=== PATIENT | female | born 1990 | race Asian ===

== ENCOUNTER 2016-12-09 08:13 | Inpatient (IN) | payer OTHER ==
[~2016-12-09] VITALS: Ht 170.2 cm; Wt 65.0 kg
[2016-12-09 08:14] VITALS: Ht 170.2 cm; Wt 65.0 kg
[2016-12-09] MEDS ORDERED: ONDANSETRON INJ 2 MG/ML 2 ML VIAL IV STA (08:28)
[2016-12-09] MEDS ORDERED: MoRPHine SULFATE 4 MG/ML 1 ML CARP\\VIAL IV STA ×2 (08:28→10:39)
[2016-12-09] MEDS ORDERED: OPTIRAY 320 IV PRN (08:45)
[2016-12-09 08:51] LABS: BASO % 0.5 %; BASO ABS # 0.03 K/uL (0-0.2); COMPLETE YES; EOS % 1.7 %; HEMATOCRIT 38.3 % (37-47); IG% 0.2 %; LYMPH % 28.9 %; LYMPH ABS # 1.67 K/uL (1.2-3.4); MEAN CELL VOLUME 87.2 fL (80-100); MEAN CORPUSCULAR HEMOGLOBIN 30.5 pg (25-34); MEAN PLATELET VOLUME 8.9 fL (7.4-10.4); MONO % 6.2 %; NEUT % 62.5 %; PLATELET COUNT 236 K/uL (130-400); RED BLOOD COUNT 4.39 M/uL (4.2-5.4); WHITE BLOOD COUNT 5.78 K/uL (4.8-10.8)
[2016-12-09 08:54] LABS: MANUAL MICROSCOPIC REQUIRED? NO; REVIEW REQ? NO; URINE APPEARANCE CLEAR (CLEAR); URINE BILIRUBIN NEG (NEG); URINE COLOR YELLOW; URINE NITRITE NEG (NEG); URINE PH 5.5 (4.5-7.5); URINE SPECIFIC GRAVITY 1.021 (1.000-1.030); UROBILINOGEN NEG (NEG); ZZUR CULT IF INDIC CLEAN CATCH NO
[2016-12-09 09:02] LABS: PARTIAL THROMBOPLASTIN RATIO 1.1; PROTHROMBIN TIME (PATIENT) 11.1 SECONDS (9.0-12.0)
[2016-12-09 09:07] LABS: ALT/SGPT 46 U/L (12-78); BLOOD UREA NITROGEN 9 mg/dl (7-18); CALCIUM 9.4 mg/dl (8.5-10.1); CARBON DIOXIDE 25 mmol/L (21-32); CHLORIDE 107 mmol/L (98-107); CREATININE 0.81 mg/dl (0.60-1.20); GLUCOSE 102 mg/dl (70-99); MAGNESIUM 1.9 mg/dl (1.8-2.4); POTASSIUM 3.7 mmol/L (3.5-5.1); SODIUM 139 mmol/L (136-145)
[2016-12-09 09:12] LABS: ALKALINE PHOSPHATASE 117 U/L (45-117); AST/SGOT 35 U/L (15-37)
[2016-12-09] MEDS ORDERED: PROMETHAZINE HCL INJ 12.5 MG in SODIUM CHLORIDE 0.9% 50ML 50 ML IV STA (10:52)
--- NOTE | 2016-12-09 11:45 | DIAGNOSTIC IMAGING REPORT ---
ABD/PELVIS IV AND ORAL CONT CLINICAL HISTORY: 26 years-old Female presenting with lower abdominal pain, severe pain. TECHNIQUE: Multidetector CT of the abdomen and pelvis was performed after the administration of oral and intravenous contrast. IV contrast: 93 mL of Optiray 320. A dose lowering technique was used consistent with the principles of ALARA (as low as reasonably achievable). COMPARISON: None. CT DOSE (mGy.cm): The estimated cumulative dose is 352.84 mGy.cm. FINDINGS: Transportation Director topogram: Unremarkable. Lung bases: Minimal dependent changes likely atelectasis. Normal heart size. No pericardial or pleural effusion. Liver: Normal morphology. No liver lesion. Patent hepatic vasculature. Biliary: No intrahepatic or extrahepatic biliary ductal dilatation. Normal gallbladder. Pancreas: Normal. Spleen: Normal. Adrenal glands: Normal. Kidneys and ureters: Normal. No hydronephrosis. Bladder: Normal. Pelvic organs: Normal uterus. Significant enlargement and heterogeneity with central hypodensity of the left ovary. A clear twisting of the vascular pedicle is not appreciated. The right ovary is also prominent although not significantly enlarged. Bowel: Moderate stool burden in the right and proximal transverse colon. Feces in the distal small bowel suggest delayed transit. No bowel obstruction. Grossly normal appendix. Peritoneal cavity: Small amount of perihepatic and pelvic ascites. Lymph nodes: No enlarged lymph nodes in the abdomen or pelvis. Vasculature: Aorta and IVC patent and normal in caliber. Abdominal wall: Normal. Musculoskeletal: Normal. IMPRESSION: 1. Findings highly suspicious for left ovarian torsion. Differential considerations include tubo-ovarian abscess given the degree of pelvic and perihepatic free fluid. Urgent gynecologic consultation advised. 2. These findings were discussed with REED Stokes by Dr. Bolton at 11:45 AM on 12/09/2016. Electronically signed by: Kendall Bolton M.D. 12/09/2016 11:44 AM Dictated Date/Time: 12/09/2016 11:34 AM
--- NOTE | 2016-12-09 13:06 | DIAGNOSTIC IMAGING REPORT ---
PELVIC COMPLETE NON OB CLINICAL HISTORY: 26 years-old Female presenting with Left ovarian abscess/torsion. TECHNIQUE: Real-time grayscale and color Doppler ultrasound imaging of the pelvis was performed using a transabdominal probe. COMPARISON: CT performed earlier the same day. FINDINGS: Uterus: Normal. Anteverted. The uterus measures 7.7 x 3.9 x 3.8 cm. Endometrial stripe measures 9 mm in thickness. Endometrium normal-appearing. Cervix normal. Right adnexa: Not visualized. Left adnexa: Left ovary enlarged and heterogeneous appearance. Left ovary measures 5.3 x 4.8 x 2.6 cm. Absence of normal color Doppler flow. Adjacent free fluid. Other: Small amount of free fluid in the pelvis. IMPRESSION: Findings remain most suspicious for left ovarian torsion. Nonvisualization of the right ovary. Examination limited by absence of transvaginal technique due to patient intolerance. Urgent gynecologic consultation advised. Electronically signed by: Kendall Bolton M.D. 12/09/2016 1:05 PM Dictated Date/Time: 12/09/2016 1:02 PM
[2016-12-09 13:21] LABS: PREG INTERNAL NEGATIVE QC NEG CLEAR BACKGROUND; PREG INTERNAL POSITIVE QC POS CONTROL LINE
[2016-12-09] MEDS ORDERED: BUPIVACAINE 0.5 % 5 MG/1 ML MPF 30ML VIAL ONE (13:39)
[2016-12-09] MEDS ORDERED: DEXAMETHASONE SOD INJ 4 MG/ML VIAL ONE (13:42)
[2016-12-09] MEDS ORDERED: MIDAZOLAM HCL 1 MG/ML 2ML VIAL ONE (13:42)
[2016-12-09] MEDS ORDERED: ONDANSETRON INJ 2 MG/ML 2 ML VIAL ONE (13:42)
[2016-12-09] MEDS ORDERED: NEOSTIGMINE METHYLSULFATE 5 MG/5 ML SYR ONE (13:42)
[2016-12-09] MEDS ORDERED: FENTANYL CITRATE INJ 50 MCG/1 ML 2 ML VIAL ONE ×2 (13:42→15:11)
[2016-12-09] MEDS ORDERED: LIDOCAINE HCL 2% 2 ML VIAL (20MG/ML) ONE (13:42)
[2016-12-09] MEDS ORDERED: GLYCOPYRROLATE INJ 0.2 MG/ML VIAL ONE (13:42)
[2016-12-09] MEDS ORDERED: PROPOFOL IV EMULSION 10 MG/ML 20 ML VIAL IV ONE (13:42)
[2016-12-09] MEDS ORDERED: ROCURONIUM BROMIDE 10 MG/ML 5 ML VIAL IV ONE ×3 (13:44→16:55)
--- NOTE | 2016-12-09 13:45 | History & Physical Bridge Note ---
H&P Re-Evaluation Bridge Note: I have examined the patient, reviewed the History & Physical and in the interval since the performance of the History & Physical I have noted the following changes of clinical significance: No changes noted
--- NOTE | 2016-12-09 13:45 | History and Physical ---
History & Physical Date of Service Dec 09, 2016. History & Physical Date of Consultation: Dec 09, 2016. Attending Physician: Dr Jennings - attending, Isaak Diaz PA-C Reason for Consultation: ovarian torsion History of Present Illness Patient is a 26-year-old G0 who presented to the emergency department with severe right lower quadrant pain that started at 7 AM today. She has experienced some nausea and attempted to vomit to feel better however this did not alleviate pain. She has had nausea since arriving at the ER and has also vomited once however the pain preceded the nausea and vomiting. The pain is described as sharp and severe and comes in waves. Patient's gynecologic history is benign. She reports a last menstrual period of the middle of November, unsure of exact dates. She reports a Pap smear performed 1 year ago that was negative and reports no history of abnormal Paps. She reports no history of sexually transmitted infections. 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 She is originally from [place] and has been living in [place] for 1 year. Past Medical/Surgical History Patient denies past medical history. Patient denies past surgical history. Patient denies family medical history. Social History Patient denies smoking. Social alcohol use. Denies drug use and denies additional herbal supplements. Smoking Status: Never Smoker Allergies Coded Allergies: No Known Allergies (Unverified , 12/09/16) Home Medications Patient reports she takes no medications at home. Current Inpatient Medications Current Inpatient Medications Medications (Trade) Dose Ordered Sig/Ivan Route Start Time Stop Time Status Last Admin Dose Admin Ioversol (Optiray 320) 100 ml UD PRN IV 12/09/16 08:45 12/13/16 08:44 Review of Systems Review of systems was conducted all systems reviewed negative except as described above in history of present illness. Physical Exam Date Time Temp Pulse Resp B/P (MAP) Pulse Ox O2 Delivery O2 Flow Rate FiO2 12/09/16 13:28 94 20 112/79 97 Room Air 12/09/16 12:46 78 12/09/16 12:34 78 16 105/68 97 Room Air 12/09/16 10:48 83 16 122/71 98 Room Air 12/09/16 09:58 71 18 105/72 99 Room Air 12/09/16 08:57 76 12/09/16 08:50 98 Room Air 12/09/16 08:14 37.4 90 18 119/74 99 Room Air General Appearance: WD/WN, + moderate distress Head: normocephalic, atraumatic ENT: hearing grossly normal Neck: supple Respiratory/Chest: no respiratory distress Cardiovascular: regular rate, rhythm Abdomen/GI: soft, + tenderness (bilateral lower quadrants.), + guarding Extremities/Musculoskelatal: normal inspection Neurologic/Psych: alert, normal mood/affect, oriented x 3 Skin: normal color, warm/dry Laboratory Results Last 24 Hours Test 12/09/16 08:28 12/09/16 08:37 White Blood Count 5.78 K/uL Red Blood Count 4.39 M/uL Hemoglobin 13.4 g/dL Hematocrit 38.3 % Mean Corpuscular Volume 87.2 fL Mean Corpuscular Hemoglobin 30.5 pg Mean Corpuscular Hemoglobin Concent 35.0 g/dl Platelet Count 236 K/uL Mean Platelet Volume 8.9 fL Neutrophils (%) (Auto) 62.5 % Lymphocytes (%) (Auto) 28.9 % Monocytes (%) (Auto) 6.2 % Eosinophils (%) (Auto) 1.7 % Basophils (%) (Auto) 0.5 % Neutrophils # (Auto) 3.61 K/uL Lymphocytes # (Auto) 1.67 K/uL Monocytes # (Auto) 0.36 K/uL Eosinophils # (Auto) 0.10 K/uL Basophils # (Auto) 0.03 K/uL RDW Standard Deviation 41.6 fL RDW Coefficient of Variation 12.9 % Immature Granulocyte % (Auto) 0.2 % Immature Granulocyte # (Auto) 0.01 K/uL Prothrombin Time 11.1 SECONDS Prothromb Time International Ratio 1.0 Activated Partial Thromboplast Time 28.6 SECONDS Partial Thromboplastin Ratio 1.1 Urine Color YELLOW Urine Appearance CLEAR Urine pH 5.5 Urine Specific [place] 1.021 Urine Protein NEG Urine Glucose (UA) NEG Urine Ketones NEG Urine Occult Blood NEG Urine Nitrite NEG Urine Bilirubin NEG Urine Urobilinogen NEG Urine Leukocyte Esterase NEG Sodium Level 139 mmol/L Potassium Level 3.7 mmol/L Chloride Level 107 mmol/L Carbon Dioxide Level 25 mmol/L Anion Gap 7.0 mmol/L Blood Urea Nitrogen 9 mg/dl Creatinine 0.81 mg/dl Est Creatinine Clear Calc Drug Dose 102.4 ml/min Estimated GFR () 116.2 Estimated GFR (Non- 100.2 BUN/Creatinine Ratio 11.0 Random Glucose 102 mg/dl Calcium Level 9.4 mg/dl Magnesium Level 1.9 mg/dl Total Bilirubin 0.7 mg/dl Aspartate Amino Transf (AST/SGOT) 35 U/L Alanine Aminotransferase (ALT/SGPT) 46 U/L Alkaline Phosphatase 117 U/L Total Creatine Kinase 89 U/L Creatine Kinase MB < 0.5 ng/ml Creatine Kinase MB Ratio Total Protein 8.0 gm/dl Albumin 3.9 gm/dl Globulin 4.1 gm/dl Albumin/Globulin Ratio 1.0 Human Chorionic Gonadotropin, Qual NEG Assessment & Plan Assessment: Left ovarian torsion Plan: After performing the patient's physical exam and reviewing the radiology results I believe the patient has a left ovarian torsion. She has a surgical abdomen and the left ovary on imaging appears enlarged and there is no obvious Doppler Blood flow to the ovary. I discussed this with the patient and discussed that this is an indication for emergent surgery. The plan is to perform diagnostic laparoscopy with possible oophorectomy if needed. Imaging shows left ovarian torsion however due to patient's bilateral complaint it is possible the imaging may be incorrect and will evaluate the ovaries further upon visualization during surgery. I discussed risks benefits and alternatives to surgery with patient she elected to proceed with surgery. Informed consent was obtained. We'll proceed to the operating room.
[2016-12-09] MEDS ORDERED: GELATIN SPONGE SZ 100 ONE (16:48)
[2016-12-09] MEDS ORDERED: PROMETHAZINE HCL INJ 12.5 MG in SODIUM CHLORIDE 0.9% 50ML 50 ML IV PRN (17:45)
[2016-12-09] MEDS ORDERED: ONDANSETRON INJ 2 MG/ML 2 ML VIAL IV PRN ×2 (17:45→18:00)
[2016-12-09] MEDS ORDERED: ATROPINE SULFATE 0.1 MG/ML 5ML SYR IV PRN (17:45)
[2016-12-09] MEDS ORDERED: KETOROLAC TROMETHAMINE 30 MG/ML VIAL IV. PRN ×2 (17:45→18:00)
[2016-12-09] MEDS ORDERED: HYDROmorphone INJ 2 MG/ML SYR/VIAL IV PRN (17:45)
--- NOTE | 2016-12-09 17:49 | EMERGENCY ROOM VISIT NOTE ---
History First contact with patient: 08:19 Chief Complaint: ABDOMINAL PAIN Stated Complaint: STOMACH ACHE Nursing Triage Summary: triage note; pt reports lower abd pain nausea and vomitting started this am. History of Present Illness The patient is a 26 year old female who presents to the Emergency Room via private vehicle accompanied by female with complaints of "stomachache". The patient states that she woke this morning around 7 AM with abrupt onset of suprapubic abdominal pain. She rates the pain as an 8-9/10. She denies any alcohol use. She states that last evening she ate ice cream and noodles. She denies any vaginal pain or discharge. She denies chance of . She denies chance of sexually transmitted infection. Review of Systems A complete 10-point Review of Systems was discussed with the patient, with pertinent positives and negatives listed in the History of Present Illness. All remaining Review of Systems questions can be considered negative unless otherwise specified. Past Medical/Surgical History No pertinent. Family History No pertinent. Social History Smoking Status: Never Smoker Patient lives locally with friends. Current/Historical Medications No Active Prescriptions or Reported Meds Physical Exam Vital Signs Date Time Temp Pulse Resp B/P (MAP) Pulse Ox O2 Delivery O2 Flow Rate FiO2 12/09/16 13:28 94 20 112/79 97 Room Air 12/09/16 12:46 78 12/09/16 12:34 78 16 105/68 97 Room Air 12/09/16 10:48 83 16 122/71 98 Room Air 12/09/16 09:58 71 18 105/72 99 Room Air 12/09/16 08:57 76 12/09/16 08:50 98 Room Air 12/09/16 08:14 37.4 90 18 119/74 99 Room Air Physical Exam VITAL SIGNS - Vital signs and nursing notes were reviewed. stable. GENERAL -26-year-old female appearing her stated age who is in no acute distress. Communicates well with provider and answers questions appropriately. SKIN - Without rashes. No petechial rashes. HEAD - NC/AT. EYES - Sclera anicteric. EARS - No deformities of external structures noted on gross examination bilaterally. NOSE - Midline and without cyanosis. MOUTH/OROPHARYNX - Without perioral cyanosis. NECK - Neck with FROM. LUNGS - Chest wall symmetric without accessory muscle use, intercostals retractions, or central cyanosis. Normal vesicular breath sounds CTA B/L. No wheezes, rales, or rhonchi appreciated. CARDIAC - RRR with S1/S2. No murmur, rubs, or gallops appreciated. ABDOMEN - Abdominal contour normal without pulsations or visible masses. BS normoactive all four quadrants. Patient is difficult to examine as she is unable to fully reclined, she is in a hunched over position but does note tenderness diffusely in the abdomen, worse in the lower quadrants. No palpable masses, hepatosplenomegaly, or ascites noted. Medical Decision & Procedures Laboratory Results 12/09/16 08:37 Red Blood Count 4.39, Mean Corpuscular Volume 87.2, Mean Corpuscular Hemoglobin 30.5, Mean Corpuscular Hemoglobin Concent 35.0, Mean Platelet Volume 8.9, Neutrophils (%) (Auto) 62.5, Lymphocytes (%) (Auto) 28.9, Monocytes (%) (Auto) 6.2, Eosinophils (%) (Auto) 1.7, Basophils (%) (Auto) 0.5, Neutrophils # (Auto) 3.61, Lymphocytes # (Auto) 1.67, Monocytes # (Auto) 0.36, Eosinophils # (Auto) 0.10, Basophils # (Auto) 0.03 12/09/16 08:37 Test 12/09/16 08:28 12/09/16 08:37 White Blood Count 5.78 K/uL (4.8-10.8) Red Blood Count 4.39 M/uL (4.2-5.4) Hemoglobin 13.4 g/dL (12.0-16.0) Hematocrit 38.3 % (37-47) Mean Corpuscular Volume 87.2 fL (80-100) Mean Corpuscular Hemoglobin 30.5 pg (25-34) Mean Corpuscular Hemoglobin Concent 35.0 g/dl (32-36) Platelet Count 236 K/uL (130-400) Mean Platelet Volume 8.9 fL (7.4-10.4) Neutrophils (%) (Auto) 62.5 % Lymphocytes (%) (Auto) 28.9 % Monocytes (%) (Auto) 6.2 % Eosinophils (%) (Auto) 1.7 % Basophils (%) (Auto) 0.5 % Neutrophils # (Auto) 3.61 K/uL (1.4-6.5) Lymphocytes # (Auto) 1.67 K/uL (1.2-3.4) Monocytes # (Auto) 0.36 K/uL (0.11-0.59) Eosinophils # (Auto) 0.10 K/uL (0-0.5) Basophils # (Auto) 0.03 K/uL (0-0.2) RDW Standard Deviation 41.6 fL (36.4-46.3) RDW Coefficient of Variation 12.9 % (11.5-14.5) Immature Granulocyte % (Auto) 0.2 % Immature Granulocyte # (Auto) 0.01 K/uL (0.00-0.02) Prothrombin Time 11.1 SECONDS (9.0-12.0) Prothromb Time International Ratio 1.0 (0.9-1.1) Activated Partial Thromboplast Time 28.6 SECONDS (21.0-31.0) Partial Thromboplastin Ratio 1.1 Urine Color YELLOW Urine Appearance CLEAR (CLEAR) Urine pH 5.5 (4.5-7.5) Urine Specific [place] 1.021 (1.000-1.030) Urine Protein NEG (NEG) Urine Glucose (UA) NEG (NEG) Urine Ketones NEG (NEG) Urine Occult Blood NEG (NEG) Urine Nitrite NEG (NEG) Urine Bilirubin NEG (NEG) Urine Urobilinogen NEG (NEG) Urine Leukocyte Esterase NEG (NEG) Anion Gap 7.0 mmol/L (3-11) Est Creatinine Clear Calc Drug Dose 102.4 ml/min Estimated GFR () 116.2 Estimated GFR (Non- 100.2 BUN/Creatinine Ratio 11.0 (10-20) Calcium Level 9.4 mg/dl (8.5-10.1) Magnesium Level 1.9 mg/dl (1.8-2.4) Total Bilirubin 0.7 mg/dl (0.2-1) Aspartate Amino Transf (AST/SGOT) 35 U/L (15-37) Alanine Aminotransferase (ALT/SGPT) 46 U/L (12-78) Alkaline Phosphatase 117 U/L (45-117) Total Creatine Kinase 89 U/L (26-192) Creatine Kinase MB < 0.5 ng/ml (0.5-3.6) Creatine Kinase MB Ratio (0-3.0) Total Protein 8.0 gm/dl (6.4-8.2) Albumin 3.9 gm/dl (3.4-5.0) Globulin 4.1 gm/dl (2.5-4.0) Albumin/Globulin Ratio 1.0 (0.9-2) Human Chorionic Gonadotropin, Qual NEG (NEG) Medications Administered Medications (Trade) Dose Ordered Sig/Ivan Route Start Time Stop Time Status Last Admin Dose Admin Morphine Sulfate (MoRPHine SULFATE INJ) 4 mg NOW STAT IV 12/09/16 08:28 12/09/16 08:30 DC 12/09/16 08:53 4 MG Ondansetron HCl (Zofran Inj) 4 mg NOW STAT IV 12/09/16 08:28 12/09/16 08:30 DC 12/09/16 08:53 4 MG Morphine Sulfate (MoRPHine SULFATE INJ) 4 mg NOW STAT IV 12/09/16 10:39 12/09/16 10:40 DC 12/09/16 10:50 4 MG Gelatin (Surgifoam Sponge 100 (LARGE)) 1 ea STK-MED ONCE .ROUTE 12/09/16 16:48 12/09/16 16:49 DC 12/09/16 17:08 1 EA Medical Decision Patient was seen and evaluated as above. She presents to us today with acute onset of inferior quadrant abdominal pain. She examines difficulty, as she notes to be in a lot of pain. The concern is for ovarian torsion, however there are many other etiologies of which may occur. Decision was made to obtain a CT scan first, as the pain didn't appear to be higher than the ovaries. CT results are concerning for ovarian torsion. Ultrasound was obtained stat. There is continued concern for ovarian torsion. Case was discussed with the on-call CURRICULUM ADVISORY TEACHER prior to the ultrasound and as soon as the CT scan results were obtained. The patient denies any history of ovarian cysts or abdominal surgeries. She was given morphine for her pain. Lab work is unremarkable. Urine and hCG level were negative. She'll be taken to the operating room for further evaluation and management of her suspected left ovarian torsion. Please refer to further documentation regarding the patient's stay In the evaluation and treatment of this patient following differential diagnoses were entertained: Ovarian torsion, tubo-ovarian abscess, among others. Impression Primary Impression: Left lower quadrant pain Departure Information Dispostion Still a Patient Condition FAIR Prescriptions No Active Prescriptions or Reported Meds Referrals No Doctor, Assigned (PCP) Patient Instructions [facility]
[2016-12-09] MEDS ORDERED: BISACODYL 10 MG SUPP PR PRN (18:00)
[2016-12-09] MEDS ORDERED: MoRPHine SULFATE 2 MG/ML CARP IV PRN (18:00)
[2016-12-09] MEDS ORDERED: MoRPHine SULFATE 4 MG/ML 1 ML CARP\\VIAL IV PRN (18:00)
[2016-12-09] MEDS ORDERED: MAGNESIUM HYDROXIDE SUSP 30 ML UDC PO PRN (18:00)
[2016-12-09] MEDS ORDERED: PROMETHAZINE HCL INJ 25 MG in SODIUM CHLORIDE 0.9% 50ML 50 ML IV PRN (18:00)
[2016-12-09] MEDS ORDERED: OXYCODONE/ACETAMINOPHEN 5-325 TAB PO PRN (18:00)
--- NOTE | 2016-12-09 18:03 | [facility] Post Operative Brief Note ---
Immediate Operative Summary Operative Date Dec 09, 2016. Pre-Operative Diagnosis Suspected Left ovarian torsion Post-Operative Diagnosis Endometriosis, left ovarian endometrioma, adhesive disease Procedure(s) Performed Attempt at diagnostic laparoscopy, laparotomy with left salpingo-oopherectomy, lysis of adhesions, cystoscopy Surgeon Dr. Zazueta Asbestos Abatement Worker Surgeon(s) Dr. Jones Estimated Blood Loss 100 cc Findings Severe endometriosis, stage 4. Left ovary with large endometrioma cyst, draining dark brown old blood into pelvis. Adhesive disease throughout abdomen , with scarring of colon to sidewall and scarring of left ovary and left fallopian tube to sidewall. Adhesive disease at umbilicus, preventing laparoscopic entry. On cysto, bilateral ureter jets visualized. Specimens A: left fallopian tube and ovary Drains traylor, clear yellow Anesthesia general Complication(s) None Disposition Recovery Room / PACU
--- NOTE | 2016-12-09 18:04 | Anesthesiology Progress Note ---
Anesthesia Post Op Note Date & Time Dec 09, 2016 at 18:03 Vital Signs Pain Intensity: 0 Vital Signs Past 12 Hours Date Time Temp Pulse Resp B/P (MAP) Pulse Ox O2 Delivery O2 Flow Rate FiO2 12/09/16 18:00 74 16 105/62 100 Nasal Cannula 2 12/09/16 17:50 71 14 107/67 100 Nasal Cannula 2 12/09/16 17:40 81 17 110/63 100 Oxymask 3 12/09/16 17:30 36.9 81 17 116/62 100 Oxymask 10 12/09/16 13:28 94 20 112/79 97 Room Air 12/09/16 12:46 78 12/09/16 12:34 78 16 105/68 97 Room Air 12/09/16 10:48 83 16 122/71 98 Room Air 12/09/16 09:58 71 18 105/72 99 Room Air 12/09/16 08:57 76 12/09/16 08:50 98 Room Air 12/09/16 08:14 37.4 90 18 119/74 99 Room Air Notes Mental Status: alert / awake / arousable, participated in evaluation Pt Amnestic to Procedure: Yes Nausea / Vomiting: adequately controlled Pain: adequately controlled Airway Patency, RR, SpO2: stable & adequate BP & HR: stable & adequate Hydration State: stable & adequate Anesthetic Complications: no major complications apparent
[2016-12-09 18:30] VITALS: BP 104/66; PULSE 88; TEMP 37.2; O2SAT 100
[2016-12-09 19:00] VITALS: BP 106/67; PULSE 98; TEMP 37.3; O2SAT 97
[2016-12-09] MEDS ORDERED: LACTATED RINGER'S 1000ML 1,000 ML IV SCH (19:00)
[2016-12-09 19:30] VITALS: BP 99/61; PULSE 94; TEMP 37.5; O2SAT 95
[2016-12-09 20:30] VITALS: BP 95/56; PULSE 102; TEMP 37.6; O2SAT 95
[2016-12-09 21:40] VITALS: BP 93/53; PULSE 98; TEMP 37.5; O2SAT 93
[2016-12-09 23:55] VITALS: BP 94/56; PULSE 98; TEMP 37; O2SAT 96
--- NOTE | 2016-12-10 00:40 | OPERATIVE REPORT ---
DATE OF OPERATION: 12/09/2016 PREOPERATIVE DIAGNOSIS: Suspected left ovarian torsion. POSTOPERATIVE DIAGNOSES: Severe stage IV endometriosis with left ovarian endometrioma and adhesive disease. PROCEDURES PERFORMED: 1. Attempted diagnostic laparoscopy. 2. Laparotomy with left salpingo-oophorectomy. 3. Lysis of adhesions. 4. Cystoscopy. SURGEON: Carissa Zazueta DO FLY FISHING GUIDE: Cherelle Jones MD ESTIMATED BLOOD LOSS: 100 mL. FINDINGS: Severe endometriosis stage IV, left ovary with large endometrioma cyst draining dark brown, old blood in the pelvis, adhesive disease throughout the abdomen with scarring of colon to the side wall and scarring of left ovary and left fallopian tube to side wall, adhesive disease at the umbilicus preventing laparoscopic entry. On cystoscopy, bilateral ureter jets visualized, bladder otherwise unremarkable. SPECIMENS: Left fallopian tube and ovary. DRAINS: Jaramillo catheter, clear yellow. ANESTHESIA: General. COMPLICATIONS: None. DISPOSITION: Stable and good to recovery room, PACU. INDICATIONS FOR PROCEDURE: The patient is a 26-year-old G0, who presented to the Emergency Department with sudden onset of sharp bilateral low pelvic pain causing her to double over and unable to stand upright. CT scan performed by the Emergency Department showed a left adnexal cyst with a possibly necrotic center. Therefore, a pelvic ultrasound was performed. This exam was limited as the patient did not tolerate a transvaginal ultrasound due to pain, but abdominal ultrasound also showed a left ovarian cyst approximately 5 cm. No blood flow was noted on the cyst and therefore strong concern for ovarian torsion. DESCRIPTION OF PROCEDURE: The patient was seen in the Emergency Department where risks, benefits, alternatives to surgery were reviewed. She elected to proceed with surgery. Informed consent was obtained. The patient was taken to the operating room where general anesthesia was administered. The plan was to perform diagnostic laparoscopy and visualize the left ovary; however, after Rea open cut down technique for a supraumbilical trocar site was performed, entry into the peritoneal cavity was made. However, there was so much scar tissue at this location that I did not feel it was safe to continue attempting entry at this location. Due to significant amount of adhesive disease, decision was made to perform laparotomy. Therefore, the case was converted to an open laparotomy. A Pfannenstiel skin incision was made with a scalpel and carried through to the underlying layer of fascia with a Bovie cautery. The fascia was nicked at midline and this incision was extended bilaterally with cautery. The superior aspect of the fascial incision was grasped with Simran clamps x2, and elevated off the underlying rectus abdominis muscles. In a similar fashion, the inferior aspect of this incision was dissected. The rectus abdominis muscles were at midline and entered bluntly. This incision was extended. The peritoneum was grasped with a hemostat x2 and entered sharply. This incision was then extended. Upon entry into the peritoneal cavity, a large amount of dark brown, old appearing blood presented at the incision site. This was soaked up by a lap sponge. A weighted speculum was placed in the vagina. Cervix was visualized and grasped by its anterior lip and an acorn manipulator was placed. Evaluation of the pelvic organs revealed a normal palpable uterus with palpably normal right adnexa and left adnexa adhered to the pelvic side wall. The O'Linus-O'Arce retractor was placed and the bowel was packed with damp lap sponges. Multiple adhesions were noted throughout the pelvis and adhesions between the colon and the peritoneum were taken down to obtain better visualization of the left adnexal area. The left fallopian tube was transected and cauterized with Bovie cautery. Next, the left round ligament was transected and the broad ligament was into the posterior and anterior leaves. This allowed entry into the retroperitoneal space, where vasculature was identified. Multiple attempts were made to visualize the left ureter throughout the case; however, this was impossible, likely due to patient's anatomy and due to adhesive disease. After taking down the round ligament, the left cornu of the uterus was sutured with 0 Vicryl in a running baseball stitch to obtain excellent hemostasis. The left pelvic side wall was gently dissected using sharp and blunt dissection to skeletonize the vascular pedicles between the left ovary and the left sidewall. The IP ligament was skeletonized. It was doubly clamped. A free tie stay suture was placed on the left IP ligament and the ligament was transected using a Marino stitch. This pedicle was tied off. Additional pedicles were taken down in a similar fashion on the left side wall with multiple attempts to visualize ureter and not being able to see it; however, with opening the broad ligament by opening the space within the round ligament this we felt that we were operating medially to the presumed location of the left ureter. After multiple takedown of adhesions and taking down all pedicles, the left ovary and fallopian tube were removed and sent to pathology. The pelvis was copiously irrigated and suctioned. The right pelvic sidewall was evaluated and the right ureter was noted peristalsing. The left pelvic sidewall was re-evaluated again and the left ureter appeared to be peristalsing at the pelvic brim; however, it was very difficult to follow this down into the pelvis. At this point, the pelvis was packed with clean lap sponges and attention was then turned to the bladder for cystoscopy. Methylene blue had been given by anesthesia. The cystoscope was inserted and bilateral ureters with urine jet flow were noted on cystoscopy. The cystoscope was then removed. Jaramilol was reinserted and gloves were changed and attention was turned back to the abdomen, where hemostasis was achieved using Bovie cautery and one free tie on the vascular pedicle of the IP ligament. A large piece of Gelfoam was used to further obtain hemostasis. At this point, excellent hemostasis was noted. All retractors were removed from the pelvis and the fascia was reapproximated with 0 Vicryl in a running stitch. The subcuticular tissue was irrigated and reapproximated using 2-0 plain gut in a running stitch. The skin was reapproximated using 4-0 Vicryl in a running subcuticular stitch. At the conclusion of the case, all instruments were removed from the vagina. Bandages and Steri-Strips were applied. The patient tolerated the procedure well, was taken to the postoperative recovery area in stable and good condition. Instrument, sponge and needle counts were correct x2 at the conclusion of the case. Due to the operative findings what we had initially thought was a potential left ovarian torsion by the patient's presentation and the imaging obtained in the ER, turned out to be stage IV endometriosis with the left ovarian endometrioma and severe adhesive disease in the pelvis. Interestingly, the patient, in discussion with her after the surgery has no history of severe menstrual cramping or PMS like symptoms, has never undergone pelvic imaging in the past. She does note that she has had over the past 1-2 years a slight increase in some cramping just prior to her period, but relates that this is negligible. I attest to the content of the Intraoperative Record and any orders documented therein. Any exception s are noted below.
[2016-12-10] MEDS: IBUPROFEN 600 MG TAB PO PRN ×2 (02:42→11:42)
[2016-12-10 03:30] VITALS: BP 94/55; PULSE 93; TEMP 36.5; O2SAT 96
[2016-12-10] MEDS ORDERED: OXYC-57 PO (06:22)
[2016-12-10] MEDS ORDERED: DOCU-94 PO (06:22)
[2016-12-10] MEDS ORDERED: IBUP-1451 PO (06:22)
--- NOTE | 2016-12-10 06:23 | Discharge Instructions ---
Discharge Instructions Date of Service Dec 10, 2016. Admission Reason for Admission: Left Salingoophorectomy Discharge Discharge Diagnosis / Problem: Left salpingoophorectomy/severe endometriosis Discharge Goals Goal(s): Routine recovery after surgery Activity Recommendations Activity Limitations: per Instructions/Follow-up section . Instructions / Follow-Up Instructions / Follow-Up ACTIVITY RECOMMENDATIONS: Activity: * During the first week at home, your activity should be similar to that done at the hospital prior to discharge. Your primary activity is in-house walking interspersed with rest periods. Preparing lunch for yourself is acceptable. You may go up and down stairs. Try to stay up progressively longer periods of time to help regain your strength more quickly. * During the second week at home, activities should include some meal preparation, walking to strengthen abdominal muscles and riding in a car. You may drive a car and make brief shopping trips at the end of the second week at home. * Lifting should not exceed 15-20 pounds during the first month after surgery. * Sexual intercourse can usually be resumed about 6 weeks after surgery depending on findings at your post-operative examinations. Bathing: * Showers or baths are permissible. Sitting in four to six inches of hot water (sitz bath) is often comforting after vaginal surgery and is permitted at any time. A sitz bath at bedtime can also assist in a better night's sleep. SPECIAL CARE INSTRUCTIONS: The major discomforts related to surgery have now passed and progressive improvement will occur. The tight uncomfortable feeling in the abdominal, pelvic and back area will gradually fade away. Fatigue may take the longest to disappear; your energy level may take several weeks to return to normal. At times you may become frustrated or impatient over not feeling as well or doing as much as you'd like , but this is a normal reaction to surgery and will pass with time. Vaginal Discharge: * Odorous, blood-tinged or brownish discharge may be present for one to three weeks after surgery. * Pads should be used and not tampons. * Stitches may be passed vaginally. * Bleeding may be somewhat increased approximately two weeks after surgery, which is related to the stitches dissolving. * If bleeding becomes free flowing, notify our office at . Bowel Care: * Constipation after surgery is very common. Foods that promote bowel activity (bran, fruit, prune juice) should be included in your diet. * A capsule, DIALOSE-PLUS, can be purchased without a prescription and can be taken daily (one or two capsules) to assist in promoting bowel activity. * If you have had vaginal surgery involving your rectum, we will discuss this when discharged from the hospital. Temperature: * Any fever above 100.4 degrees F should be reported to our office at . FOLLOW-UP: Post-Operative Appointments: * Individual instructions will have been given about the timing of your first examination, but this is usually at the end of the second week home. * You will need to call the office at soon after discharge to make the appointment for your post-op check-up if it has not already been scheduled. * Additional information regarding activity, sexual intercourse and when to return to work will be given at this appointment. WE WISH YOU A SPEEDY RECOVERY! Current Hospital Diet Patient's current hospital diet: Regular Diet Discharge Diet Recommended Diet: Regular Diet Procedures Procedures Performed: Attempt at diagnostic laparoscopy, laparotomy with left salpingo-oopherectomy, lysis of adhesions, cystoscopy Pending Studies Studies pending at discharge: no Medical Emergencies . Who to Call and When: Medical Emergencies: If at any time you feel your situation is an emergency, please call 911 immediately. . Non-Emergent Contact Non-Emergency issues call your: Primary Care Provider, [employer]or . . "Provider Documentation" section prepared by Carissa Zazueta. . VTE Core Measure Inpt VTE Proph given/why not?: SCD's
--- NOTE | 2016-12-10 06:58 | OB/GYN Progress Note ---
DIE EQUIPMENT OPERATOR Progress Note Date of Service Dec 10, 2016. Subjective conversation w/ patient, physical exam Ambulation: ambulating normally Voiding: no voiding problems Passing Gas: Yes Diet Tolerance: Clear Liquids Pain: pain controlled - pt has taken 1 motrin Review of Systems Constitutional: No problem reported Respiratory: No problem reported Cardiac: No problem reported Breast: No problem reported Abdomen: No problem reported Female : No problem reported Objective Vital Signs Date Time Temp Pulse Resp B/P (MAP) Pulse Ox O2 Delivery O2 Flow Rate FiO2 12/10/16 03:30 36.5 93 16 94/55 (68) 96 Room Air 12/09/16 23:55 37.0 98 18 94/56 (69) 96 Room Air 12/09/16 23:55 96 Room Air 12/09/16 21:40 37.5 98 16 93/53 (66) 93 Room Air 12/09/16 20:30 37.6 102 18 95/56 (69) 95 Room Air 12/09/16 19:30 37.5 94 18 99/61 (74) 95 Room Air 12/09/16 19:00 37.3 98 18 106/67 (80) 97 Room Air 12/09/16 18:30 100 Room Air 12/09/16 18:30 37.2 88 18 104/66 (79) 100 Room Air 12/09/16 18:30 100 Room Air 12/09/16 18:20 83 16 106/67 100 Nasal Cannula 2 12/09/16 18:10 36.7 80 16 109/66 100 Nasal Cannula 2 12/09/16 18:00 74 16 105/62 100 Nasal Cannula 2 12/09/16 17:50 71 14 107/67 100 Nasal Cannula 2 12/09/16 17:40 81 17 110/63 100 Oxymask 3 12/09/16 17:30 36.9 81 17 116/62 100 Oxymask 10 12/09/16 13:28 94 20 112/79 97 Room Air 12/09/16 12:46 78 12/09/16 12:34 78 16 105/68 97 Room Air 12/09/16 10:48 83 16 122/71 98 Room Air 12/09/16 09:58 71 18 105/72 99 Room Air 12/09/16 08:57 76 12/09/16 08:50 98 Room Air 12/09/16 08:14 37.4 90 18 119/74 99 Room Air Physical Exam General Appearance: WELL-APPEARING, NO APPARENT DISTRESS Respiratory/Chest: no respiratory distress Cardiovascular: regular rate, rhythm Abdomen: non tender, soft Extremities: normal inspection Laboratory Results Last 24 Hours Test 12/09/16 08:28 12/09/16 08:37 12/10/16 06:37 White Blood Count 5.78 K/uL Red Blood Count 4.39 M/uL Hemoglobin 13.4 g/dL Hematocrit 38.3 % Mean Corpuscular Volume 87.2 fL Mean Corpuscular Hemoglobin 30.5 pg Mean Corpuscular Hemoglobin Concent 35.0 g/dl Platelet Count 236 K/uL Mean Platelet Volume 8.9 fL Neutrophils (%) (Auto) 62.5 % Lymphocytes (%) (Auto) 28.9 % Monocytes (%) (Auto) 6.2 % Eosinophils (%) (Auto) 1.7 % Basophils (%) (Auto) 0.5 % Neutrophils # (Auto) 3.61 K/uL Lymphocytes # (Auto) 1.67 K/uL Monocytes # (Auto) 0.36 K/uL Eosinophils # (Auto) 0.10 K/uL Basophils # (Auto) 0.03 K/uL RDW Standard Deviation 41.6 fL RDW Coefficient of Variation 12.9 % Immature Granulocyte % (Auto) 0.2 % Immature Granulocyte # (Auto) 0.01 K/uL Prothrombin Time 11.1 SECONDS Prothromb Time International Ratio 1.0 Activated Partial Thromboplast Time 28.6 SECONDS Partial Thromboplastin Ratio 1.1 Urine Color YELLOW Urine Appearance CLEAR Urine pH 5.5 Urine Specific [place] 1.021 Urine Protein NEG Urine Glucose (UA) NEG Urine Ketones NEG Urine Occult Blood NEG Urine Nitrite NEG Urine Bilirubin NEG Urine Urobilinogen NEG Urine Leukocyte Esterase NEG Sodium Level 139 mmol/L Potassium Level 3.7 mmol/L Chloride Level 107 mmol/L Carbon Dioxide Level 25 mmol/L Anion Gap 7.0 mmol/L Blood Urea Nitrogen 9 mg/dl Creatinine 0.81 mg/dl Est Creatinine Clear Calc Drug Dose 102.4 ml/min Estimated GFR () 116.2 Estimated GFR (Non- 100.2 BUN/Creatinine Ratio 11.0 Random Glucose 102 mg/dl Calcium Level 9.4 mg/dl Magnesium Level 1.9 mg/dl Total Bilirubin 0.7 mg/dl Aspartate Amino Transf (AST/SGOT) 35 U/L Alanine Aminotransferase (ALT/SGPT) 46 U/L Alkaline Phosphatase 117 U/L Total Creatine Kinase 89 U/L Creatine Kinase MB < 0.5 ng/ml Creatine Kinase MB Ratio Total Protein 8.0 gm/dl Albumin 3.9 gm/dl Globulin 4.1 gm/dl Albumin/Globulin Ratio 1.0 Human Chorionic Gonadotropin, Qual NEG Assessment and Plan Post-Op Day Number: 1 Continue Routine Care: POD#1 s/p attempt at diagnostic laparoscopy (abandoned due to adhesive disease) , laparotomy with left salpingoophorectomy, lysis of adhesions, cystoscopy Patient is feeling well. Pain is controlled. Discussed the case, discussed intraabdominal findings, discussed diagnosis of endometriosis. Provided patient with Patient Information sheets from Up To Date per her request. Patient is doing well - will plan to discharge to home today when she is tolerating PO, ambulating, passing gas, and urinating. Followup in office in 2w and 6w for postop visits. Discharge instructions discussed.
[2016-12-10 07:15] LABS: BASO % 0.1 %; BASO ABS # 0.01 K/uL (0-0.2); COMPLETE YES; HEMATOCRIT 32.7 % (37-47); IG% 0.3 %; LYMPH % 6.9 %; LYMPH ABS # 1.05 K/uL (1.2-3.4); MEAN CELL VOLUME 87.2 fL (80-100); MEAN CORPUSCULAR HEMOGLOBIN 30.4 pg (25-34); MEAN CORPUSCULAR HGB CONC 34.9 g/dl (32-36); MEAN PLATELET VOLUME 9.2 fL (7.4-10.4); MONO % 6.7 %; PLATELET COUNT 220 K/uL (130-400); RED BLOOD COUNT 3.75 M/uL (4.2-5.4); WHITE BLOOD COUNT 15.12 K/uL (4.8-10.8)
[2016-12-10 08:00] VITALS: BP 94/43; PULSE 79; TEMP 36.9; O2SAT 97
[2016-12-10 11:35] VITALS: BP 95/55; PULSE 74; TEMP 37; O2SAT 97
[2016-12-10 13:35] VITALS: BP 95/55; PULSE 74; TEMP 37; O2SAT 97
== END 2016-12-10 13:35 | disposition home or self-care (01) | DRG 742 ==
LOC: C.EDB 08:14 → C.MS4N 17:58 → ENRESERV 18:06
PROVIDERS: ADMIT Obstetrics & Gynecology; ATTEND Obstetrics & Gynecology
PROC: 0UT10ZZ Resection of Left Ovary, Open Approach (ICD-10-PCS; principal; 2016-12-09 13:36)
PROC: 0UT60ZZ Resection of Left Fallopian Tube, Open Approach (ICD-10-PCS; principal; 2016-12-09 13:36)
PROC: 0DNW0ZZ Release Peritoneum, Open Approach (ICD-10-PCS; principal; 2016-12-09 13:36)
DX: N80.1 Endometriosis of ovary (principal); N83.512 Torsion of left ovary and ovarian pedicle; N99.4 Postprocedural pelvic peritoneal adhesions

== ENCOUNTER → 2017-06-10 | Outpatient (CLI) | payer OTHER ==
[~2017-06-10] MED LIST: DOCU-94 PO
== END | disposition home or self-care (01) ==
LOC: C.PAPS 14:36
PROVIDERS: ATTEND Obstetrics & Gynecology
DX: Z12.4 Encounter for screening for malignant neoplasm of cervix (principal); R87.615 Unsatisfactory cytologic smear of cervix